=== PATIENT | female | born 1990 | race Caucasian/White ===

== ENCOUNTER 2022-02-14 21:25 | Emergency (ER) | payer BC ==
[2022-02-14 22:34] VITALS: PULSE 77; TEMP 98.5
[2022-02-14] MEDS ORDERED: SODIUM CHLORIDE 0.9% 1,000 ML IV STA (22:51)
[2022-02-14] MEDS ORDERED: IBUPROFEN 400 MG TAB PO STA (22:53)
[2022-02-14 23:51] LABS: Basophils # (A) 0.1 k/uL (0-0.2); Basophils % (A) 1 %; Eosinophils # (A) 0.1 k/uL (0-0.7); Eosinophils % (A) 2 %; HGB 12.5 gm/dL (11.4-16.0); Lymphocytes # (A) 1.6 k/uL (1.0-4.8); Lymphocytes % (A) 28 %; MCH 29.6 pg (25.0-35.0); MCHC 32.1 g/dL (31.0-37.0); MCV 92.3 fL (80.0-100.0); Mean Platelet Volume 7.3; Monocytes # (A) 0.5 k/uL (0-1.0); Monocytes % (A) 8 %; Neutrophils # (A) 3.3 k/uL (1.3-7.7); Neutrophils % (A) 58 %; Platelet Count 167 k/uL (150-450); RBC 4.22 m/uL (3.80-5.40); RDW 12.8 % (11.5-15.5); WBC 5.7 k/uL (3.8-10.6)
[2022-02-15 00:19] LABS: ALT 26 U/L (4-34); AST 56 U/L (14-36); African American GFR (CKD) >90 (>60 ml/min/1.73 sqM); Albumin 4.2 g/dL (3.5-5.0); Alkaline Phosphatase 41 U/L (38-126); Anion Gap 13 mmol/L; Blood Urea Nitrogen 12 mg/dL (7-17); Calcium 8.9 mg/dL (8.4-10.2); Carbon Dioxide 21 mmol/L (22-30); Chloride 102 mmol/L (98-107); Glucose 95 mg/dL (74-99); Non-African American GFR(CKD) >90 (>60 ml/min/1.73 sqM); Sodium 136 mmol/L (137-145); Total Bilirubin 0.7 mg/dL (0.2-1.3); Total Protein 7.1 g/dL (6.3-8.2)
--- NOTE | 2022-02-15 01:55 | ED ---
Fever HPI - General Chief Complaint: Fever Stated Complaint: Rash,Headache Time Seen by Provider: 02/14/22 22:38 Source: patient, RN notes reviewed Mode of arrival: ambulatory Limitations: no limitations - History of Present Illness Initial Comments: In presents with a rash and fever. Patient states that she had a rash of 102F. Patient also had a headache, generalized body aches, and a rash which seemed to start on her groin and torso. His spare her face, palms, soles. She denies any significant itching. Patient has not had a cough. No sore throat. No nasal discharge. No neck stiffness. Patient states she does have some swollen lymph nodes in her neck area. No ear pain. No vision changes. Headache is actually improved after the patient took Tylenol prior to arrival. No abdominal pain. No dysuria. No vaginal discharge. No changes in bowel movements or urination. No dizziness, no lightheadedness, no vision or hearing disturbance. No difficulty with speech or swallowing. No nasal discharge. No sinus tenderness. No chest pain or shortness of breath. No back pain. Denies chance of . No hot or cold intolerance. MD Complaint: fever - Related Data Allergies Allergy/AdvReac Type Severity Reaction Status Date / Time Sulfa (Sulfonamide Allergy Unknown Verified 02/14/22 22:34 Antibiotics) Review of Systems ROS Statement: Those systems with pertinent positive or pertinent negative responses have been documented in the HPI. ROS Other: All systems not noted in ROS Statement are negative. Past Medical History Past Medical History: Hypertension Additional Past Medical History / Comment(s): spondaloarthritis. auto-immune History of Any Multi-Drug Resistant Organisms: None Reported Past Surgical History: Appendectomy Past Psychological History: Anxiety, Depression Smoking Status: Vaper Past Alcohol Use History: Occasional Past Drug Use History: Marijuana General Exam - General Exam Comments Initial Comments: Vital signs stable, patient afebrile. Patient was noted be somewhat diaphoretic on initial evaluation. Cranial nerves II through XII intact. No meningeal signs. Limitations: no limitations General appearance: alert, in no apparent distress Head exam: Present: atraumatic, normocephalic, normal inspection Eye exam: Present: normal appearance, PERRL, EOMI. Absent: scleral icterus, conjunctival injection, periorbital swelling ENT exam: Present: normal exam, normal oropharynx, mucous membranes moist, TM's normal bilaterally, normal external ear exam. Absent: mucous membranes dry Neck exam: Present: normal inspection, full ROM, lymphadenopathy (Nontender anterior cervical lymphadenopathy. Patient also has posterior adenopathy noted which is mild.), other (No axillary adenopathy). Absent: tenderness, menin gismus Respiratory exam: Present: normal lung sounds bilaterally. Absent: respiratory distress, wheezes, rales, rhonchi, stridor, chest wall tenderness, accessory muscle use, decreased breath sounds, prolonged expiratory Cardiovascular Exam: Present: regular rate, normal rhythm, normal heart sounds. Absent: systolic murmur, diastolic murmur, rubs, gallop, clicks GI/Abdominal exam: Present: soft, normal bowel sounds. Absent: distended, tenderness, guarding, rebound, rigid Extremities exam: Present: normal inspection, full ROM, normal capillary refill. Absent: tenderness, pedal edema, joint swelling, calf tenderness Back exam: Present: normal inspection Neurological exam: Present: alert, oriented X3, CN II-XII intact Psychiatric exam: Present: normal affect, normal mood Skin exam: Present: warm, dry, intact, rash (Patient has a generalized, ocular rash involving the groin, torso, and extremities. Spares the face and hands. This is nonvesicular. No pustules. No papules. No target lesions. No mucous membrane involvement), erythema. Absent: cyanosis, diaphoretic, urticaria, ves icles, petechiae, pallor, mottled, abrasion Course Vital Signs 02/14/22 22:29 Temperature 98.5 F Pulse Rate 77 Respiratory 20 Rate Blood Pressure 140/80 O2 Sat by Pulse 98 Oximetry Medical Decision Making - Medical Decision Making Given the monkey proximal outbreak. We did check for this. Testing was sent. Also sent strep screen to the laboratory. Patient did not want to wait for results. I will monitor. Patient's blood work is essentially consistent with viral syndrome. Patient had no evidence of meningeal signs. No distress at discharge. Vital signs stable, patient afebrile. Discussed treatment for viral syndrome with the patient. Advised urinalysis, however, patient has no voiding irritation. Patient deferred testing for this. Suspect the patient has viral syndrome with a viral rash based on her presentation. Patient was told to return to the ER for any signs or symptoms worsen. Told to return immediately if any other problems arise. All questions answered. Treatment plan discussed. Patient in agreement Every effort has been made to ensure accuracy of this dictation. However, due to the limitations of electronic medical records and dictation devices, errors in charting still occur. The case was discussed in detail with ED attending physician. Presentation, findings, treatment plan discussed in detail. Manager Security Dr. Brooks - Lab Data Result diagrams: 02/14/22 23:24 02/14/22 23:24 Lab Results 02/14/22 02/14/22 02/14/22 Range/Units 23:24 23:24 23:24 WBC 5.7 (3.8-10.6) k/uL RBC 4.22 (3.80-5.40) m/uL Hgb 12.5 (11.4-16.0) gm/dL Hct 39.0 (34.0-46.0) % MCV 92.3 (80.0-100.0) fL MCH 29.6 (25.0-35.0) pg MCHC 32.1 (31.0-37.0) g/dL RDW 12.8 (11.5-15.5) % Plt Count 167 (150-450) k/uL MPV 7.3 Neutrophils % 58 % Lymphocytes % 28 % Monocytes % 8 % Eosinophils % 2 % Basophils % 1 % Neutrophils # 3.3 (1.3-7.7) k/uL Lymphocytes # 1.6 (1.0-4.8) k/uL Monocytes # 0.5 (0-1.0) k/uL Eosinophils # 0.1 (0-0.7) k/uL Basophils # 0.1 (0-0.2) k/uL Sodium 136 L (137-145) mmol/L Potassium 4.0 (3.5-5.1) mmol/L Chloride 102 (98-107) mmol/L Carbon Dioxide 21 L (22-30) mmol/L Anion Gap 13 mmol/L BUN 12 (7-17) mg/dL Creatinine 0.67 (0.52-1.04) mg/dL Est GFR (CKD-EPI)AfAm >90 (>60 ml/min/1.73 sqM) Est GFR (CKD-EPI)NonAf >90 (>60 ml/min/1.73 sqM) Glucose 95 (74-99) mg/dL Calcium 8.9 (8.4-10.2) mg/dL Total Bilirubin 0.7 (0.2-1.3) mg/dL AST 56 H (14-36) U/L ALT 26 (4-34) U/L Alkaline Phosphatase 41 (38-126) U/L Total Protein 7.1 (6.3-8.2) g/dL Albumin 4.2 (3.5-5.0) g/dL Coronavirus (PCR) Not Detected (Not Detectd) Disposition Clinical Impression: Viral rash, Viral syndrome Disposition: HOME SELF-CARE Condition: Good Instructions (If sedation given, give patient instructions): Fever in Adults (ED), Acute Rash (ED), Viral Syndrome (ED) Additional Instructions: Alternating acetaminophen and ibuprofen every 3-4 hours for fever control. Drink plenty of fluids. Do not spread the infection to other individuals. Wear a mask as directed. Isolate until monkey proximal testing is obtained. Follow-up with your regular physician as directed. Return to the ER immediately if any symptoms worsen, new symptoms arise, or any other problems develop. Is patient prescribed a controlled substance at d/c from ED?: No Referrals: None,Stated [Primary Care Provider] - 1-2 days Time of Disposition: 01:55
[2022-02-15 02:33] VITALS: BP 127/67; RESP 15
== END 2022-02-15 02:33 | disposition home or self-care (01) ==
LOC: EC 21:25
DX: B34.9 Viral infection, unspecified (principal); R21 Rash and other nonspecific skin eruption; F17.290 Nicotine dependence, other tobacco product, uncomplicated; I10 Essential (primary) hypertension; Z88.2 Allergy status to sulfonamides
CPT/HCPCS: 36415; 80053; 85025; 87081; 87430; 87635; 99283